=== PATIENT | male | born 1970 | race Caucasian/White ===

== ENCOUNTER 2023-07-04 19:51 | Emergency (ER) | payer OTHER ==
[2023-07-04] MEDS ORDERED: Dicyclomine 20 MG/2 ML VIAL ONE (20:09)
[2023-07-04] MEDS ORDERED: Lactated Ringer's 1,000 ML ONE ×2 (20:09→21:29)
[2023-07-04] MEDS ORDERED: Ondansetron PF 4 MG/2 ML Vial ONE (20:09)
[2023-07-04] MEDS ORDERED: Ketorolac Tromethamine 30 MG/ML VIAL ONE ×2 (20:09→22:17)
[2023-07-04 20:37] LABS: Hematocrit 57.1 % (42.0-52.0); Hemoglobin 18.5 g/dL (14.0-18.0); Mean Corpuscular HGB CONC 32.5 g/dL (32.0-36.0); Mean Corpuscular Hemoglobin 29.7 pg (27.0-31.0); Mean Corpuscular Volume 91.5 fl (78.0-98.0); Mean Platelet Volume 8.6 fL (7.4-10.4); Platelet Count 171 10x3/uL (130-400); RBC Distribution Width 12.5 % (11.5-14.5); Red Blood Cell (RBC) Count 6.24 mill/uL (4.70-6.10); White Blood Cell (WBC) Count 10.5 10x3/uL (4.8-10.8)
[2023-07-04 20:38] LABS: Band 1 % (5-11); Lymphocytes 8 % (21-51); MDiff Complete? YES; Monocytes 1 % (0-10); Neutrophil 90 % (42-75); Platelet Adequacy Comment Appears Adequate
[2023-07-04 20:46] LABS: ALT (SGPT) 15 U/L (8-55); AST (SGOT) 17 U/L (5-34); Albumin 4.4 g/dL (3.5-5.0); Alkaline Phosphatase 77 U/L (40-110); Anion Gap 18 mmol/L (10-20); BUN (Urea Nitrogen) 17 mg/dL (8.4-25.7); Bilirubin, Total 0.7 mg/dL (0.2-1.2); CK (CPK) 36 U/L (30-200); Calc. Creatinine Clearance 0 mL/min (70-130); Calcium 10.1 mg/dL (7.8-10.44); Carbon Dioxide 20 mmol/L (22-29); Chloride 105 mmol/L (98-107); Estimated GFR 105; Globulin 2.5 g/dL (2.4-3.5); Glucose 128 mg/dL (70-105); Lipase 10 U/L (8-78); Magnesium 1.7 mg/dL (1.6-2.6); Potassium 3.9 mmol/L (3.5-5.1); Protein, Total 6.9 g/dL (6.0-8.3); Sodium 139 mmol/L (136-145); Troponin I Less than 0.010 ng/mL (< 0.028)
[2023-07-04] MEDS ORDERED: Orphenadrine Citrate 60 MG/2 ML VIAL ONE (21:29)
[2023-07-04 22:00] LABS: Bilirubin Negative (Negative); Blood, Urine Moderate (Negative); Clarity Clear (Clear); Glucose, Urine (Dipstick) Negative (Negative); Ketone, Urine 15 mg/dL (Negative); Leukocyte Trace (Negative); Nitrite Negative (Negative); Protein, Urine (Dipstick) Negative (Neg-Trace); Urobilinogen 0.2 mg/dL (Less than 2)
[2023-07-04 22:04] LABS: CAUTI Indications for Culture Pelvic or flank pain; Squamous Epithelial 0-3 HPF (0-3)
[2023-07-04 22:05] LABS: Mucous/LPF 1+ LPF (<2+)
[2023-07-04 22:06] LABS: Urine Culture Reflex No No
[2023-07-04] MEDS ORDERED: Acetaminophen 500 MG TAB ONE (22:17)
== END 2023-07-04 22:58 | disposition home or self-care (01) ==
LOC: MADERS 19:51
DX: E86.0 Dehydration (principal); R31.29 Other microscopic hematuria; R11.2 Nausea with vomiting, unspecified; R19.7 Diarrhea, unspecified; F17.210 Nicotine dependence, cigarettes, uncomplicated
CPT/HCPCS: 71045; 80053; 81001; 82550; 83605; 83690; 83735; 84443; 84484; 85025; 87804; 93005; 94760; 96361; 96372; 96374; 96375; 96376; J1885; J2360; J2405; J7120

== ENCOUNTER 2023-07-25 05:52 | Emergency (ER) | payer OTHER ==
[2023-07-25] MEDS ORDERED: Dexamethasone 10 MG/ML VIAL ONE (06:50)
[2023-07-25] MEDS ORDERED: Amoxicillin/Potassium Clav 875 MG TAB ONE (06:50)
== END 2023-07-25 06:54 | disposition home or self-care (01) ==
LOC: MADERS 05:52
DX: H66.93 Otitis media, unspecified, bilateral (principal); F17.210 Nicotine dependence, cigarettes, uncomplicated
CPT/HCPCS: 96372; 99282; J1100